=== PATIENT | male | born 1940 | race Caucasian/White ===

== ENCOUNTER → 2018-09-28 08:09 | Outpatient (CLI) | payer MEDICARE, SELFPAY ==
--- NOTE | 2018-09-28 08:18 | RAD_ITS ---
STUDY: SWALLOWING STUDY REASON FOR EXAM: Male, 77 years old. Dysphagia. TECHNIQUE: The examination was performed with Speech Pathology in attendance. Under fluoroscopic observation, the patient ingested thin barium, thick barium, barium pudding, and barium coated cracker. FLUOROSCOPY TIME: 1:22 minutes/seconds. 1262 spot images were obtained. RADIOLOGIST INVOLVEMENT: Radiologist was present and providing direct supervision. COMPARISON: None. FINDINGS: The following was observed during swallowing of the various mixtures of barium: Thin Barium: There was no evidence of aspiration or laryngeal penetration. Barium Pudding: There was no evidence of aspiration or laryngeal penetration. Barium Coated Cracker: There was no evidence of aspiration or laryngeal penetration. RAD/Swallowing Function w/Video IMPRESSION: Normal tailored barium swallow study. No evidence of increased risk for aspiration. The swallow study findings were discussed with the patient by the speech pathologist at the conclusion of the examination. Please see speech pathology report for more information and recommendations. Electronically Signed: Pedro Garcia, at 10:13 EDT , Service support ,
--- NOTE | 2018-09-28 09:20 | SP.MBSS_ITS ---
PRIMARY / SECONDARY DIAGNOSIS: Dysphagia REFERRING PHYSICIAN: Kamille Babin CURRENT DIET: regular/thin DENTITION: upper/lower dentures MENTAL STATUS: WNL for participation in this study RESPIRATORY STATUS: oxygenating on room air PREVIOUS MODIFIED BARIUM SWALLOW STUDY: n/a REASON FOR REFERRAL: Patient reports globus sensation in throat, oriented towards right post deglutition as well as being present when not eating/drinking MEDICAL HISTORY: anemia, arthritis, degenerative disc disease lumbar, duodenal ulcer disease, essential primary hypertension, fatty liver, hyperlipidemia, narcolepsy, obesity, obstructive sleep apnea, paroxysmal atrial fibrillation, restless leg syndrome, syndenham chorea, vitamin D deficiency STUDY FINDINGS: Patient participated in a Modified Barium Swallow (MBS) study on 09/28/2018. Dr. Garcia was the radiologist present for this evaluation. This study was recorded in the lateral view and images were sent to PACs for storage. The following consistencies were presented to this patient for analysis of oropharyngeal swallow function: thin liquid, pudding and a shortbread cookie. Results of the MBS are as follows: PENETRATION / ASPIRATION SCALE (MENDEZ): 1 = does not enter airway 2 = enters airway/above vocal folds/ejected 3 = enters airway/above vocal folds/not ejected 4 = enters airway/contacts vocal folds/ejected 5 = enters airway/contacts vocal folds/not ejected 6 = enters airway/below vocal folds/ejected 7 = enters airway/below vocal folds/not ejected despite effort 8 = enters airway/below vocal folds/no effort PENETRATION / ASPIRATION SCALE (SCORE): 1. Thin liquid vis 5mL teaspoon: 1 2. Thin liquid via 5mL teaspoon: 1 3. Thin liquid, large sequential swallows via cup: 1 4. Thin liquid, single sip via cup: 1 5. Thin liquid, single sip via straw: 1 6. Puddin 7. Cookie: 1 8. Thin liquid, single sip via cup: 1 IMPRESSION ORAL PHASE: LABIAL SEAL: no labial escape TONGUE CONTROL DURING BOLUS MANIPULATION: escape to lateral buccal cavity/floor of mouth BOLUS PREPARATION / MASTICATION: slow prolonged chewing/mashing with complete recollection BOLUS TRANSPORT / LINGUAL MOTION: brisk tongue motion ORAL RESIDUE: residue collection on oral structures (posterior lingual surface) PHARYNGEAL PHASE: INITIATION OF PHARYNGEAL SWALLOW: bolus head at posterior angle of ramus at first hyoid excursion SOFT PALATE ELEVATION: trace column of contrast/air between soft palate and pharyngeal wall LARYNGEAL ELEVATION: complete superior movement of thyroid cartilage with complete approximation of arytenoids cartilage to epiglottic petiole ANTERIOR HYOID EXCURSION: partial anterior movement EPIGLOTTIC MOVEMENT: complete epiglottic inversion LARYNGEAL VESTIBULE CLOSURE AT HEIGHT OF SWALLOW: complete laryngeal vestibule closure with no air/contrast in laryngeal vestibule PHARYNGEAL STRIPPING WAVE: pharyngeal stripping wave present / diminished PHARYNGOESOPHAGEAL SEGMENT OPENING: complete distension and complete duration with no obstruction of flow TONGUE BASE RETRACTION: narrow column of contrast between tongue base and posterior pharyngeal wall PHARYNGEAL RESIDUE: trace residue within or on pharyngeal structures ESOPHAGEAL PHASE: ESOPHAGEAL BOLUS CLEARANCE IN THE UPRIGHT POSITION: complete clearance; esophageal coating INTERPRETATION OF RESULTS: Patient presents with oral dysphagia. Oral phase primarily marked by mild mastication inefficiency as a result of continual talking during oral prep of solid textures. Incomplete oral clearance appreciated w/ a collection of contrast remaining on the posterior lingual surface post deglutition across all consistencies assessed along w/ trace right buccal/floor of mouth liquid retention. Pharyngeal phase marked by slight velopharyngeal insufficiency w/ trace contrast noted between the posterior pharyngeal wall and velum occuring 1x only; no nasoregurgitation. Complete airway protection was achieved w/ no penetration/aspiration. Only a trace amount of contrast coating the pharyngeal structures post deglutition w/ no accumulation. No findings to attribute patient?s reported globus sensation to. The Patient presents with mastication and deglutition abilities found to be grossly within normal limits. RECOMMENDATIONS DIET TEXTURE RECOMMENDATIONS: regular textures/thin liquids REFERRALS: No further skilled dysphagia intervention warranted. Pt reports post nasal drip and ?burning sensation? in sinuses/throat. Globus sensation related to GERD should be considered. ADDITIONAL COMMENTS/RECOMMENDATIONS: Results and recommendations were discussed with the Patient immediately following MBS completion, with the Patient verbalizing understanding and agreement with all recommendations and education provided. IMAGE COUNT: [id number]
== END ==
PROVIDERS: Family Provider Nurse Practitioner Adult Health; PCP Nurse Practitioner Adult Health; Referring Provider Nurse Practitioner Adult Health; Visit Provider Nurse Practitioner Adult Health
DX: R13.10 Dysphagia, unspecified (principal)
CPT/HCPCS: 74230; 92611

== ENCOUNTER 2018-11-03 10:44 | Outpatient (RCR) | payer MEDICARE, MEDICAID, SELFPAY ==
--- NOTE | 2018-11-03 19:04 | HP.SP.AD ---
History - History Date of Eval: 11/03/18 Previous speech therapy: No Other Relevant Medical History/Diagnoses/Surgery: Pt lives in assisted living with his . Pt was referred for cognitive evaluation by nurse practioner at this facility. Pt does not currently drive or work. Pt reports diagnosis of narcolepsy. Smoking Status: Never smoker - Pain Is pain an issue with your current prescribed condition?: No - Personal Education History: GED Right Hearing Abillity: Normal Left Hearing Abillity: Normal Visual Assistive Devices: Glasses Patient Allergies - Allergies Allergies No Known Allergies Allergy (Verified 05/19/18 11:29) CLQT - CLQT CLQT Administered: Yes CLQT: Cognitive Linguistic Quick Test (CLQT) is a criterion - referenced assessment designed for adults between the ages of 18 and 89 with known or suspected neurological dysfuntions. The CLQT is to assess strength and weaknesses in five cognitive domains. Severity ratings are within normal limits, mild, moderate, severe deficits. The subtests are as follows: Date: 11/03/18 - Attention Attention: WNL - Memory Memory: WNL - Executive Functions Executive Functions: WNL - Language Language: WNL - Visuospatial Skills Visuospatial Skills: WNL - Composite Severity Rating Composite Severity Rating: WNL - Clock Drawing Severity Rating Clock Drawing Severity Rating: Mild - CLQT Comments Comments The pt achieved scores at or above the cutoff score for his age on all subtests but Personal Facts, as he was unable to recall his exact age. The pt demonstrated adequate executive functioning skills (planning, monitoring, etc...) to effectively complete all tasks independently. Plan - Plan Plan: Skilled speech-language therapy is not warranted at this time, as the patient is demonstrating age-appropriate cognitive skills. Additionally, the patient is living in an assisted living facility where he reports most needs (medications, finances, appointments, meals, etc...) are met with daily supports in place. The patient does appear to have adequate awareness of his deficits, with likely daily waxing and waning of cognitive skills associated with narcoleptic episodes. Educated pt on completing important activities when fully alert/awake, as well as completing cognitive exercises (word searches, crosswords, sudokus, etc...) to keep his mind active in the absence of direct need, with the pt verbalizing understanding. Please reconsult as necessary. - Recommendations Treatment Warranted: No Education - Patient Instruction Patient Education: Diagnosis
== END 2018-11-03 19:00 | disposition home or self-care (01) ==
LOC: SP 10:44
PROVIDERS: Family Provider Nurse Practitioner Adult Health; PCP Nurse Practitioner Adult Health; Referring Provider Nurse Practitioner Adult Health; Visit Provider Nurse Practitioner Adult Health
DX: G31.84 Mild cognitive impairment of uncertain or unknown etiology (principal)
CPT/HCPCS: 92523

== ENCOUNTER → 2019-05-31 12:28 | Outpatient (CLI) | payer MEDICARE, MEDICAID, SELFPAY ==
[2019-05-19 11:02] VITALS: BMI 36.5
== END ==
PROVIDERS: Family Provider Nurse Practitioner Adult Health; PCP Nurse Practitioner Adult Health; Referring Provider Nurse Practitioner Family; Visit Provider Nurse Practitioner Family
DX: I48.0 Paroxysmal atrial fibrillation (principal); R06.02 Shortness of breath
CPT/HCPCS: 93225; 93226; 93306

== ENCOUNTER → 2021-03-11 10:05 | Outpatient (CLI) | payer MEDICARE, SELFPAY ==
[2021-02-28 09:56] VITALS: BMI 33.1
--- NOTE | 2021-03-11 10:25 | MRI_ITS ---
STUDY: MRI BRAIN WITH AND WITHOUT CONTRAST REASON FOR EXAM: Male, 80 years old. Diplopia Ptosis; mild cognitive impairment TECHNIQUE: Standardized multiplanar fat and water weighted pulse sequences were obtained. was administered for the contrast portion of the examination. COMPARISON: None. FINDINGS: Normal size of the ventricles and extra-axial spaces for the patient''s age. Mild periventricular white matter ischemic changes without mass effect or restricted diffusion.. Chronic ischemic changes within the byron. Normal bilateral basal ganglia. Normal thalami. There is no extra-axial fluid accumulation. Normal flow voids within the major intracranial circulation suggesting patency by spin echo criteria. Normal venous enhancement. There is no enhancing intra-axial or extra-axial abnormality. Normal sella turcica, pituitary gland, infundibular stalk, optic chiasm and hypothalamus. Normal tectal plate and pineal gland. Normal midbrain, and medulla. Normal cerebellum. Normal basal cisterns. Normal bilateral temporal bones. Normal bilateral internal auditory canals. Postop changes status post bilateral lens implants.. Moderate mucosal thickening in the right maxillary sinus and mild ethmoid sinuses bilaterally.. Normal calvarium and skull base. Normal visualized soft tissue structures. Normal visualized upper cervical spine. MRI/Brain W/WO Contrast IMPRESSION: Mild white matter ischemic changes and chronic ischemic changes within the byron without evidence for acute infarct. No enhancing lesions observed following contrast administration Electronically Signed: Gabino Rowland MD at 22:39 EDT , Service support ,
[2021-03-12 06:40] LABS: CREATININE FINGERSTICK 0.9 mg/dL (0.70-1.30); EGFR FINGERSTICK > 60.0000 mL/min (>60)
== END ==
PROVIDERS: PCP Nurse Practitioner Adult Health; Referring Provider Psychiatry & Neurology Neurology; Visit Provider Psychiatry & Neurology Neurology
DX: H53.2 Diplopia (principal); H02.409 Unspecified ptosis of unspecified eyelid; G31.84 Mild cognitive impairment of uncertain or unknown etiology
CPT/HCPCS: 70553; A9575

== ENCOUNTER → 2022-03-13 | Outpatient (CLI) | payer MEDICARE, MEDICAID, SELFPAY ==
[2022-03-13 17:47] LABS: Hematocrit 41.8 % (40-54); Hemoglobin 13.8 g/dL (13.0-16.5); Mean Corpuscular Hgb 32.2 pg (27.0-32.0); Mean Corpuscular Volume 97.4 fL (80-94); Mean Platelet Vol. 9.8 fl (6.2-12.0); Platelet Count 244 K/mm3 (150-450); Red Blood Count 4.29 M/mm3 (4.6-6.2); White Blood Count 8.6 K/mm3 (4.4-11.0)
[2022-03-13 18:23] LABS: Anion Gap 8 (5-15); BUN 15 mg/dL (7-18); BUN/Creat Ratio 18.1 RATIO (10-20); Calcium,Total 9.1 mg/dL (8.5-10.1); Chloride 105 mmol/L (98-107); Creatinine, Serum 0.83 mg/dL (0.70-1.30); EST Glomerular Filtration Rate 94 mL/min (>60); Est Glom Filt Rate - Afr Amer 114 mL/min (>60); Ferritin 98 ng/mL (26-388); Glucose 101 mg/dL (74-106); Iron 39 ug/dL (65-175); Potassium 4.2 mmol/L (3.5-5.1); Sodium Level 138 mmol/L (136-145)
== END | disposition home or self-care (01) ==
PROVIDERS: PCP Nurse Practitioner Adult Health; Referring Provider Psychiatry & Neurology Neurology; Visit Provider Psychiatry & Neurology Neurology
DX: D64.9 Anemia, unspecified (principal); Z86.2 Personal history of diseases of the blood and blood-forming organs and certain disorders involving the immune mechanism
CPT/HCPCS: 36415; 80048; 82728; 83540; 85027

== ENCOUNTER → 2022-04-29 | Outpatient (CLI) | payer MEDICARE, MEDICAID, SELFPAY ==
--- NOTE | 2022-04-29 09:58 | ECHOD_ITS ---
Reason For Study: SYNCOPE Procedure This was a 2D Doppler, Color Flow transthoracic echocardiogram. The study was technically difficult. Due to body habitus, deep respirations. Exam performed in department. Left Ventricle Normal LV size. Left ventricular systolic function is normal. The estimated ejection fraction is 60 %. Stage 1 diastolic dysfunction. No regional wall motion abnormalities noted. Right Ventricle Normal RV size. Normal systolic function. Atria Normal left atrium. Normal right atrium. Mitral Valve Normal mitral valve. Mild (1+) eccentric mitral valve insufficiency. Tricuspid Valve Normal tricuspid valve. Mild tricuspid valve insufficiency. Pulmonary artery systolic pressure is 26 mmHg. Aortic Valve Trisinus/trileaflet aortic valve. Mild focal aortic valve calcification. Pulmonic Valve Normal pulmonic valve. Great Vessels Normal aortic root. The pulmonary artery is normal size. Normal inferior vena cava. Pericardium/Pleural No pericardial effusion. MMode/2D Measurements & Calculations LVIDd: 4.4 cm IVSd: 1.2 cm Ao root diam: 3.2 cm LVIDs: 3.1 cm LVPWd: 1.1 cm RVDd: 4.1 cm FS: 29.8 % LAV(MOD-bp): 48.7 ml LA A4 area: 15.0 cm2 LA dimension(2D): 3.9 cm LAV(MOD-bp) Indexed: 22.5 ml/m2 LAV(MOD-sp2): 52.3 ml LAV(MOD-sp4): 44.0 ml RA A4 area: 11.1 cm2 Time Measurements MV dec time: 0.26 sec Doppler Measurements & Calculations MV E max juan carlos: 31.7 cm/sec Lat Peak E' Juan Carlos: 5.4 cm/sec Med Peak E' Juan Carlos: 4.4 cm/sec MV A max juan carlos: 72.2 cm/sec E/E' lat: 5.9 E/E' med: 7.2 MV E/A: 0.44 MV dec slope: 121.7 cm/sec2 Ao V2 max: 139.8 cm/sec LV V1 max: 70.6 cm/sec Ao max P.8 mmHg LV V1 max P.0 mmHg Ao V2 mean: 99.2 cm/sec LV V1 mean P.97 mmHg Ao mean P.5 mmHg LV V1 mean: 46.3 cm/sec Ao V2 VTI: 28.3 cm LV V1 VTI: 17.2 cm PA V2 max: 110.9 cm/sec TR max juan carlos: 242.0 cm/sec TR max P.9 mmHg ECHO/Echo Complete Interpretation Summary Normal LV size. Left ventricular systolic function is normal. The estimated ejection fraction is 60 %. Stage 1 diastolic dysfunction. Mild (1+) eccentric mitral valve insufficiency. Pulmonary artery systolic pressure is 26 mmHg. Ordering Physician: Alvarez Dillon Referring Physician: Alvarez Dillon Performed By: Mattie Moody, REID, [id number]
== END | disposition home or self-care (01) ==
PROVIDERS: PCP Nurse Practitioner Adult Health; Referring Provider Family Medicine; Visit Provider Family Medicine
DX: R55 Syncope and collapse (principal)
CPT/HCPCS: 93306

== ENCOUNTER → 2023-12-03 | Outpatient (CLI) | payer MEDICAID, SELFPAY ==
[2023-12-03 10:33] LABS: Hematocrit 41.1 % (40-54); Hemoglobin 13.3 g/dL (13.0-16.5); Mean Corp Hgb Conc 32.4 g/dL (32-36); Mean Corpuscular Hgb 31.7 pg (27.0-32.0); Mean Corpuscular Volume 97.9 fL (80-94); Mean Platelet Vol. 8.7 fl (6.2-12.0); Platelet Count 225 K/mm3 (150-450); RBC Distribution Width CV 12.3 % (11.6-14.6); RBC Distribution Width SD 44.2 fl (35.1-43.9); White Blood Count 7.3 K/mm3 (4.4-11.0)
[2023-12-03 11:15] LABS: Ferritin 67 ng/mL (26-388); Iron 111 ug/dL (65-175)
[2023-12-10 16:09] LABS: ACHR Recep AB, Blocking 22 % (0-25); Acetylcholine Receptor Binding < 0.03 nmol/L (0.00-0.24)
[2023-12-14 10:07] LABS: ACHR AB Modulating 0 % (0-45)
== END | disposition home or self-care (01) ==
PROVIDERS: PCP Nurse Practitioner Adult Health; Referring Provider Psychiatry & Neurology Neurology; Visit Provider Psychiatry & Neurology Neurology
DX: H02.409 Unspecified ptosis of unspecified eyelid (principal); G70.00 Myasthenia gravis without (acute) exacerbation; Z86.2 Personal history of diseases of the blood and blood-forming organs and certain disorders involving the immune mechanism
CPT/HCPCS: 36415; 82728; 83519; 83540; 84238; 85027

== ENCOUNTER → 2024-09-01 | Outpatient (CLI) | payer MEDICARE, MEDICAID, SELFPAY ==
--- NOTE | 2024-09-01 14:01 | CDU_ITS ---
Reason For Study Reason For Study: Right carotid bruit Rt. Velocities/BP Lt. Velocities/BP Prox CCA 60.5/16.8 cm/sec. Prox CCA 60.4/15.1 cm/sec. Mid CCA 72.7/16 cm/sec. Mid CCA 64.8/13.3 cm/sec. Dist CCA 64.8/16 cm/sec. Dist CCA 63.1/15.1 cm/sec. Prox ICA 62.2/16.8 cm/sec. Prox ICA 64.5/19.2 cm/sec. Mid ICA 52.6/21.2 cm/sec. Mid ICA 44.7/16.3 cm/sec. Dist ICA 45.6/14.2 cm/sec. Dist ICA 46.6/19.2 cm/sec. Rt. ICA/CCA = 0.86. Lt. ICA/CCA = 1.00. Prox ECA 91.9/8.1 cm/sec. Prox ECA 84.4/9.7 cm/sec. Rt. Vert. 46.5/16.8 cm/sec. Lt. Vert. 56/7.8 cm/sec. Right Extracranial There is homogeneous, smooth atherosclerotic plaque noted in the right common carotid artery. There is heterogeneous, irregular atherosclerotic plaque noted in the right internal carotid artery. There is heterogeneous, smooth atherosclerotic plaque noted in the right external carotid artery. Antegrade flow is noted in the right vertebral artery. Left Extracranial There is homogeneous, smooth atherosclerotic plaque noted in the left common carotid artery. There is heterogeneous, irregular atherosclerotic plaque noted in the left internal carotid artery. There is homogeneous, smooth atherosclerotic plaque noted in the left external carotid artery. Antegrade flow is noted in the left vertebral artery. Procedure Carotid Duplex 17085. This is a Carotid Duplex examination using B-mode, color flow and specral Doppler. Exam performed in department. VL/Carotid Duplex Ultrasound Interpretation Summary Mild (<50%) stenosis right extracranial internal carotid. Mild (<50%) stenosis left extracranial internal carotid. Patent and antegrade vertebrals bilaterally. Ordering Physician: Quincy Royal Referring Physician: Sindy Marx Performed By: Cindy Maurer RVT
== END | disposition home or self-care (01) ==
PROVIDERS: PCP Internal Medicine; Referring Provider Psychiatry & Neurology Neurology; Visit Provider Psychiatry & Neurology Neurology
DX: R09.89 Other specified symptoms and signs involving the circulatory and respiratory systems (principal)
CPT/HCPCS: 93880